=== PATIENT | female | born 1970 | race Caucasian/White ===

== ENCOUNTER 2016-05-25 14:38 | Emergency (ER) | payer OTHER ==
[2016-05-25 14:42] VITALS: BP 145/80; PULSE 80; TEMP 98.6; BMI 27.9
--- NOTE | 2016-05-25 16:53 | PDOC ---
History of Present Illness - General Chief Complaint: Head/Neck problem Stated Complaint: NUMBNESS/ LT SIDE OF FACE Time Seen by Provider: 05/25/16 16:28 History Source: Patient Exam Limitations: No Limitations - History of Present Illness Initial Comments: 05/25/16 16:52 CHIEF COMPLAINT: Facial numbness HISTORY OF PRESENT ILLNESS: This is a 45 year old female with a history of HTN, dyslipidemia, and hypothyroidism who presents complaining of left facial numbness and alternate left arm pain and numbness since Monday. She attributes these symptoms to stress that she has from taking care of her brother in who is recovering from his *third stroke (age 49) and from the recent of her best friend. She denies headache, neck pain, visual changes , difficulty walking, focal weakness, change in speech, or any other symptoms. Vital signs on arrival are unremarkable. PCP is Dr. Montiel. REVIEW OF SYSTEMS: GENERAL/CONSTITUTIONAL: No fever or chills. No weakness. No weight change. HEAD, EYES, EARS, NOSE AND THROAT: No change in vision. No ear pain or discharge. No sore throat. CARDIOVASCULAR: No chest pain or palpitations. RESPIRATORY: No cough, wheezing, or shortness of breath. GASTROINTESTINAL: No nausea, vomiting, diarrhea or constipation. GENITOURINARY: No dysuria, frequency, or change in urination. MUSCULOSKELETAL: No joint or muscle swelling or pain. No neck or back pain. SKIN: No rash or easy bruising. NEUROLOGIC: See HPI. PSYCHIATRIC: No depression or anxiety. ENDOCRINE: No increased thirst. No abnormal weight change. HEMATOLOGIC/LYMPHATIC: No anemia, easy bleeding, or history of blood clots. ALLERGIC/IMMUNOLOGIC: No hives or skin allergy. No latex allergy. PHYSICAL EXAM: GENERAL: The patient is awake, alert, and fully oriented, in no acute distress. ENT: Pupils equal, round and reactive to light, extraocular movements intact, sclera anicteric, conjunctiva clear. Neck supple. LUNGS: Clear to auscultation bilaterally. Normal excursion. No respiratory distress or use of accessory muscles. CV: RRR, S1/S2, no MRG. Cap refill < 2 sec. ABDOMEN: Soft, non-distended, non-tender. EXTREMITIES: Normal range of motion, no edema. NEUROLOGICAL: Normal speech, normal gait. CN II-XII grossly intact. PSYCH: Normal mood, normal affect. SKIN: Warm, dry, normal turgor, no rashes or lesions noted. NIH Stroke Scale - Last Known Well Date/Time & Onset Date Last Known Well: 05/21/16 - Initial Evaluation Level of consciousness: Alert Ask patient the month and their age: Answers both correctly Ask patient to open & close eyes; make fist and let go: Obeys both correctly Best gaze (horizontal eye movement): Normal Visual field testing: No visual field loss Facial paresis (Show teeth/raise eyebrows/close eyes tight): Normal symmetrical movement Motor Function: Left Arm: Normal Motor Function: Right Arm: Normal (extends arm 90 (or 45) degrees for 10 seconds without drift Motor Function: Left Leg: Normal (extends leg 30 degrees for 5 seconds without drift) Motor Function: Right Leg: Normal (extends leg 30 degrees for 5 seconds without drift) Limb Ataxia: No ataxia Sensory(Use pinprick test arms,legs,trunk,face/side to side): Normal Best language (Describe picture, name items, read sentences): No Aphasia Dysarthria (read several words): Normal articulation Extinction and Inattention: No abnormality - Total Score NIH Stroke Scale Score: 0 Past History - Past Medical History Allergies/Adverse Reactions: Allergies Allergy/AdvReac Type Severity Reaction Status Date / Time No Known Allergies Allergy Verified 05/25/16 14:42 Home Medications: Ambulatory Orders Levothyroxine [Synthroid -] 25 mcg PO DAILY 04/18/14 Amlodipine Besylate 10 mg PO DAILY 05/25/16 Simvastatin 40 mg PO DAILY 05/25/16 HTN: Yes Hypercholesterolemia: Yes Psychiatric Problems: No Suicide Attempt (Hx): No Thyroid Disease: Yes - Reproductive History Cervical CA: No Dysfunctional Uterine Bleeding: No Ectopic : No Endometrial CA: No Polycystic Ovaries: No Tubal Ligation: No - Immunization History Immunization Up to Date: Yes - Psycho/Social/Smoking Cessation Hx Anxiety: No Suicidal Ideation: No Smoking History: Never smoked Have you smoked in the past 12 months: No Hx Alcohol Use: No Drug/Substance Use Hx: No Substance Use Type: None *Physical Exam - Vital Signs Last Vital Signs Temp Pulse Resp BP Pulse Ox 98.6 F 80 20 145/80 100 05/25/16 14:39 05/25/16 14:39 05/25/16 14:39 05/25/16 14:39 05/25/16 14:39 Heart Score/ECG Review - ECG Intrepretation Comment:: 05/25/16 19:27 NSR at 69bpm, no ST or T wave changes ED Treatment Course - LABORATORY CBC & Chemistry Diagram: 05/25/16 17:20 05/25/16 17:20 Medical Decision Making - Medical Decision Making 05/25/16 17:18 A/P: 45 year old female with left facial numbness and left arm pain/numbness since Monday, both resolved prior to arrival. NIHSS=0. 1. EKG 2. Cardiac labs 3. Head CT 4. Re-assess 05/25/16 18:[address]: no acute intracranial process. Patient re-examined and still asymptomatic. *DC/Admit/Observation/Transfer Diagnosis at time of Disposition: Numbness of face - Discharge Dispostion Disposition: HOME Condition at time of disposition: Stable Admit: No - Referrals Referrals: Urvashi Montiel [Primary Care Provider] - Elliot Yanez MD [Staff Physician] - 3 days (If symptoms persist) - Patient Instructions Printed Discharge Instructions: DI for Numbness/tingling Additional Instructions: -You were seen today for facial and arm numbness. -CT scan, EKG, and lab work did not show any abnormalities. -If symptoms persist, please follow up with a neurologist (referral enclosed) -Return here for sudden/severe headache, change in speech, weakness of your arms or legs, difficulty walking, change in your vision, or any other concerning symptoms
--- NOTE | 2016-05-25 17:34 | PDOC ---
[id number]/80 100 05/25/16 14:39 05/25/16 14:39 05/25/16 14:39 05/25/16 14:39 05/25/16 14:39 - Physical Exam Comments: 05/25/16 17:34 The patient was examined by [QUANTITATIVE ANALYST Alexa] under my direct supervision. I personally evaluated the patient. I concur with the above findings and the plan of care. ED Treatment Course - LABORATORY CBC & Chemistry Diagram: 05/25/16 17:20 05/25/16 17:20 *DC/Admit/Observation/Transfer Diagnosis at time of Disposition: Facial numbness - Referrals Referrals: Elliot Yanez MD [Staff Physician] - 3 days (If symptoms persist) Urvashi Montiel [Primary Care Provider] - - Patient Instructions Printed Discharge Instructions: DI for Numbness/tingling Additional Instructions: -You were seen today for facial and arm numbness. -CT scan, EKG, and lab work did not show any abnormalities. -If symptoms persist, please follow up with a neurologist (referral enclosed) -Return here for sudden/severe headache, change in speech, weakness of your arms or legs, difficulty walking, change in your vision, or any other concerning symptoms
[2016-05-25 17:40] LABS: BASOPHIL 0.9 % (0-2.0); EOSINOPHIL 2.3 % (0-4.5); MCH 27.8 pg (25.7-33.7); MCHC 33.5 g/dl (32.0-36.0); MEAN CELL VOLUME 82.8 fl (80-96); MEAN PLT VOLUME 9.6 fl (7.5-11.1); NEUTROPHILS 56.3 % (42.8-82.8); PLATELET COUNT 316 K/MM3 (134-434); RDW 13.8 % (11.6-15.6); WHITE BLOOD COUNT 7.5 K/mm3 (4.0-10.0)
[2016-05-25 17:53] LABS: INR 0.99 (0.82-1.09); PROTHROMBIN TIME (PATIENT) 10.9 SEC (9.98-11.88)
[2016-05-25 19:30] LABS: ANION GAP 13 (8-16); CALCIUM 9.2 mg/dL (8.5-10.1); CO2 23 mmol/L (21-32); CREATININE 0.7 mg/dL (0.55-1.02); GLUCOSE,RANDOM 81 mg/dL (74-106); MAGNESIUM 2.1 mg/dL (1.8-2.4); SGOT/AST 15 U/L (15-37); SGPT/ALT 16 U/L (12-78)
[2016-05-25 19:32] LABS: ALK PHOS 102 U/L (45-117); BILIRUBIN,TOTAL 0.4 mg/dL (0.2-1.0); TOT PROT 7.9 g/dl (6.4-8.2)
[2016-05-25 19:35] LABS: TROPONIN I < 0.02 ng/ml (0.00-0.05)
--- NOTE | 2016-05-26 12:22 | EKG ---
Test Reason : Blood Pressure : / mmHG Vent. Rate : 069 BPM Atrial Rate : 069 BPM P-R Int : 138 ms QRS Dur : 086 ms QT Int : 418 ms P-R-T Axes : 025 061 029 degrees QTc Int : 447 ms NORMAL SINUS RHYTHM NORMAL ECG NO PREVIOUS ECGS AVAILABLE Confirmed by TRA JACOBSON MD ([id number]) on 05/26/2016 12:21:46 PM Referred By: Confirmed By:TRA JACOBSON MD
--- NOTE | 2016-05-27 11:52 | EKG ---
Test Reason : Blood Pressure : / mmHG Vent. Rate : 055 BPM Atrial Rate : 055 BPM P-R Int : 158 ms QRS Dur : 080 ms QT Int : 444 ms P-R-T Axes : 025 058 016 degrees QTc Int : 424 ms SINUS BRADYCARDIA NONSPECIFIC ST ABNORMALITY Confirmed by FRANCOISE MUNGUIA MD ([id number]) on 05/27/2016 11:51:59 AM Referred By: Confirmed By:FRANCOISE MUNGUIA MD
== END 2016-05-25 20:10 | disposition home or self-care (01) ==
LOC: JER 14:38
DX: R20.0 Anesthesia of skin (principal); I10 Essential (primary) hypertension; E78.5 Hyperlipidemia, unspecified; E78.00 Pure hypercholesterolemia, unspecified; E03.9 Hypothyroidism, unspecified
CPT/HCPCS: 36415; 70450-TC; 80053; 82550; 83735; 84484; 84703; 85025; 85610; 93005; 93010; 99283-25

== ENCOUNTER 2018-06-01 06:06 | Inpatient (IN) | payer OTHER ==
[2018-05-31 13:32] VITALS: BMI 26.2
--- NOTE | 2018-06-01 07:29 | HP ---
History & Physical Update - History History: No Change - Physical Physical: No Change - Assessment Assessment: No Change - Plan Plan: No Change (no change since visit on 05/17/18)
[2018-06-01] MEDS ORDERED: MIDAZOLAM HCL 2 MG/2 ML SINGLE DOSE VIAL ONE ×2 (07:41)
[2018-06-01] MEDS ORDERED: fentaNYL CITRATE 250 MCG/5 ML VIAL ONE (07:44)
[2018-06-01] MEDS ORDERED: PROPOFOL 20 ML ONE ×2 (07:45)
[2018-06-01] MEDS ORDERED: ROCURONIUM BROMIDE 50 MG/5 ML VIAL ONE (07:45)
[2018-06-01] MEDS ORDERED: ceFAZolin SODIUM 1 GM VIAL IVPB ONE ×3 (07:58→17:00)
[2018-06-01] MEDS ORDERED: CEFAZOLIN 2 GM/D5W 2 GM/50 ML ML IVPB ONE (09:00)
[2018-06-01] MEDS ORDERED: ceFAZolin SODIUM 1 GM VIAL ONE (09:05)
[2018-06-01] MEDS ORDERED: DEXAMETHASONE SOD PHOSPHATE 4 MG/1 ML VIAL ONE (09:05)
[2018-06-01] MEDS ORDERED: GLYCOPYRROLATE 0.2 MG/1 ML VIAL ONE (09:05)
[2018-06-01] MEDS ORDERED: KETOROLAC TROMETHAMINE 30 MG/1 ML VIAL ONE (09:05)
[2018-06-01] MEDS ORDERED: LIDOCAINE HCL/PF 2% SDV 5ML VIAL ONE (09:05)
[2018-06-01] MEDS ORDERED: NEOSTIGMINE METHYLSULFATE 0.5 MG/ML - 10 ML MDV ONE (09:07)
[2018-06-01] MEDS ORDERED: oxyCODONE HCL 5 MG TABLET PO PRN ×2 (09:11→10:01)
--- NOTE | 2018-06-01 09:15 | OP ---
Operative Note - Note: Operative Date: 06/01/18 Pre-Operative Diagnosis: Menorrhagia / Fibroid uterus Operation: Subtotal hysterectomy / Bilateral salpingegtomy / Left oophorectomy Surgeon: Leandra Lagos Power Sweeper Operator: Sheron Soto Anesthesia: General Estimated Blood Loss (mls): 100
[2018-06-01] MEDS ORDERED: HYDROmorphone HCl 2 MG/ML VIAL ONE (09:21)
[2018-06-01] MEDS ORDERED: BENZOIN/ALOE VERA/STORAX/TOLU 58 ML BOTTLE TP ONE (09:21)
[2018-06-01] MEDS ORDERED: CEFAZOLIN 1 GM/D5W 1 GM/50 ML BAG IVPB SCH (10:00)
[2018-06-01] MEDS ORDERED: ACETAMINOPHEN 1000 MG/100 ML VIAL (NON FORMULARY) IVPB ONE ×2 (10:01→10:22)
--- NOTE | 2018-06-01 10:13 | SURG ---
Surgery Full Stack Developer Note Full Stack Developer: Jessie Soto PA-C Date of Service: 06/01/18 Diagnosis: Menorrhagia / Fibroid uterus Procedure: Operation: Subtotal hysterectomy / Bilateral salpingegtomy / Left oophorectomy I was present for the entirety of the operative procedure. For further detail, please refer to operative report. Visit type - Case Type Case Type: Scheduled - Emergency Emergency Visit: No - New patient This patient is new to me today: Yes Date on this admission: 06/01/18
[2018-06-01] MEDS ORDERED: ALBUTEROL SO4 0.083% IH SOL 2.5 MG/3 ML VIAL.NEB. NEB ONE ×2 (10:14→10:15)
[2018-06-01] MEDS ORDERED: LACTATED RINGERS SOLUTION 1,000 ML/1,000 ML INFUS.BAG IV SCH (10:15)
[2018-06-01] MEDS ORDERED: HYDROmorphone *PCA* 10MG/50ML DISP.SYRIN PCA ONE ×2 (10:15→10:24)
[2018-06-01] MEDS ORDERED: ONDANSETRON 4 MG/2 ML VIAL IVPUSH PRN (11:02)
[2018-06-01] MEDS ORDERED: FUROSEMIDE 40 MG/4 ML INJECTABLE VIAL IVPUSH ONE ×3 (11:06→12:15)
[2018-06-01] MEDS ORDERED: LACTATED RINGERS SOLUTION 1,000 ML IV SCH (11:15)
[2018-06-01] MEDS ORDERED: HYDROmorphone *PCA* 10MG/50ML DISP.SYRIN PCA SCH (11:15)
[2018-06-01] MEDS: ENOXAPARIN NA (PORCINE) 30 MG/0.3 ML DISP.SYRIN SQ SCH (22:17)
[2018-06-02] MEDS ORDERED: CEFAZOLIN 1 GM/D5W 1 GM/50 ML BAG IVPB SCH (01:00)
[2018-06-02] MEDS: ENOXAPARIN NA (PORCINE) 30 MG/0.3 ML DISP.SYRIN SQ SCH ×2 (10:02→22:38)
--- NOTE | 2018-06-02 11:20 | PN ---
Progress Note (short form) - Note Progress Note: Anesthesiology Post-op 47 y.o. woman POD#1 s/p hysterectomy under GA. She was admitted post-op to telemetry for SpO2 monitoring due to prolonged sleepiness post-op. She is awake and alert this morning, sitting-up. She only c/ o some mild dizziness. No ON or anesthesia-related issues. She states that she isn't using the MANAGER CORE as much now. VSS. Stable post-operative course. Will d/c MANAGER CORE and transition pt to PO pain meds. D/w pt who is amenable to this plan.
[2018-06-02] MEDS: DEXTROSE 5%-LACTATED RINGERS 1,000 ML IV SCH (12:23)
--- NOTE | 2018-06-02 12:35 | PN ---
Progress Note (short form) - Note Progress Note: 47 yo Para 3, with menorrhagia associated with Leiomyoma of the uterus, is status post abdominal hysterectomy. She had 2 prior C-Sections and abdominoplasty. She's seen and evaluated, doing well. She's out of bed to chair; only mild incision pain. PE : Chest : CTA, no rales Abd : soft, dressing dry and intact EXT : No calf tenderness, FROM A/P : Status post hysterectomy Stable Ambulation Analgesia as needed D/C INFORMATICS PHARMACIST D/C Jaquez catheter Regular diet D/C home in am
[2018-06-02 13:57] LABS: BASO % 0.3 % (0-2.0); EOS % 0.2 % (0-4.5); HEMATOCRIT 30.5 % (32.4-45.2); HEMOGLOBIN 9.2 GM/dL (10.7-15.3); MCH 21.4 pg (25.7-33.7); MCHC 30.1 g/dl (32.0-36.0); MEAN CELL VOLUME 71.3 fl (80-96); MEAN PLT VOLUME 8.7 fl (7.5-11.1); MONO % 12.5 % (3.8-10.2); PLATELET COUNT 383 K/MM3 (134-434); RBC 4.28 M/mm3 (3.60-5.2); WHITE BLOOD COUNT 13.1 K/mm3 (4.0-10.0)
[2018-06-02 15:33] LABS: ANISOCYTOSIS 1+
[2018-06-02 15:34] LABS: OVALOCYTE 1+
[2018-06-02] MEDS: ACETAMINOPHEN 325 MG TABLET (FP) PO PRN (16:44)
[2018-06-03] MEDS: ACETAMINOPHEN 325 MG TABLET (FP) PO PRN (06:19)
[2018-06-03 08:43] VITALS: BP 122/70; PULSE 88; TEMP 98.7
[2018-06-03] MEDS: ENOXAPARIN NA (PORCINE) 30 MG/0.3 ML DISP.SYRIN SQ SCH (09:32)
[2018-06-03] MEDS: DEXTROSE 5%-LACTATED RINGERS 1,000 ML IV SCH (09:57)
--- NOTE | 2018-06-03 15:06 | DS ---
"Physical Examination Vital Signs: Vital Signs Temperature 98.7 F 06/03/18 08:41 Pulse Rate 88 06/03/18 08:41 Respiratory Rate 18 06/03/18 08:41 Blood Pressure 122/70 06/03/18 08:41 O2 Sat by Pulse Oximetry (%) 97 06/03/18 09:00 Constitutional: Yes: Well Nourished Eyes: Yes: Conjunctiva Clear HENT: Yes: Atraumatic Neck: Yes: Supple Cardiovascular: Yes: Regular Rate and Rhythm Respiratory: Yes: Regular Gastrointestinal: Yes: Normal Bowel Sounds Musculoskeletal: Yes: WNL Extremities: Yes: WNL Wound/Incision: Yes: Well Approximated Neurological: Yes: Alert, Oriented Psychiatric: Yes: Alert, Oriented Labs: CBC, BMP 06/02/18 13:35 Discharge Summary Reason For Visit: MENORRHAGIA, FIBROID UTERUS Procedures: Principal: Subtotal hysterectomy / Bilateral salpingectomy / Left Oophorectomy Hospital Course: Patient was admitted to telemetry after surgery. She was then transferred to regular floor before discharge. No blood transfusion required. Condition: Stable - Instructions Diet, Activity, Other Instructions: Dr Lagos Apprenticeship Training Representative discharge instructions Physical activity Resume your normal everyday activity as tolerated no heavy lifting or exercise until seen by your surgeon. You may walk unlimited rober of and climb stairs. You may resume driving the car when you feel safe and comfortable behind the wheel. No sexual activity as instructed by Dr. Lagos. Wound care Keep your incision clean and dry for72 hours. After that time discard the outer bandage. If they are tapes on the skin under the out of bandage leave them in place. They will peel off in the next 7 to 10 days. Do Not Peel them off. You may shower 3 days after surgery but do not submerge the incision. If there are tapes present on the skin, you may shower over them. Do not apply lotion or ointments to incision. Diet There are no dietary restrictions. Eat healthy, high-fiber foods. Drink 6 to 8 glasses of liquid each day. This will assist in keeping your bowels are regular. Pain management You may take Tylenol or acetaminophen or Ibuprofen (for example, Motrin, Advil etc.) from my pain prescription medication is ordered should be taken as prescribed for moderate to severe pain. Call Dr. Lagos for any of the following: Severe pain not relieved by medication Fever of 101 or higher Excessive bleeding or drainage on dressing Inability to urinate If you experience any chest pain or shortness of breath please seek emergency treatment immediately. Call the office at [phone] for an appointment in seven days. [place] Prescription Monitoring Program report was requested by: Jessie Kearney | Reference #: [id number] Disposition: HOME - Home Medications Comprehensive Discharge Medication List: Ambulatory Orders Amlodipine Besylate 10 mg PO DAILY 05/25/16 Simvastatin 40 mg PO DAILY 05/25/16 Levothyroxine [Synthroid -] 125 mcg PO DAILY 05/31/18 Oxycodone HCl/Acetaminophen [Percocet 5-325 mg Tablet] 1 - 2 tab PO Q4H #20 tablet MDD 6 06/01/18 Oxycodone HCl/Acetaminophen [Percocet 5-325 mg Tablet] 1 tab PO Q4H #20 tablet MDD 20 06/02/18"
--- NOTE | 2018-06-03 15:57 | OP ---
DATE OF OPERATION: 06/01/2018 PREOPERATIVE DIAGNOSIS: Menorrhagia and leiomyoma of the uterus. POSTOPERATIVE DIAGNOSIS: Menorrhagia and leiomyoma of the uterus. PROCEDURE: Subtotal hysterectomy, bilateral salpingectomy and left oophorectomy. SURGEON: Leandra Lagos MD REGISTERED NURSE CARDIAC: Jessie LUEVANO ANESTHESIA: General. COMPLICATIONS: None. ESTIMATED BLOOD LOSS: 100 mL PROCEDURE: Patient was taken to the operating room where general anesthesia was administered. Patient was then prepped and draped in proper sterile fashion. A Pfannenstiel skin incision was made approximately 2 cm above the symphysis pubis and extended sharply to the rectus fascia. The fascia was then incised bilaterally and the muscle of the anterior abdominal wall was in the midline by sharp and blunt dissection. The peritoneum was grasped between 2 pickups, elevated and entered sharply using Metzenbaum scissors. The pelvis was examined and there was an enlarged uterus noted. The bowel was packed with moist laparotomy sponges. Two Pean clamps were placed on the cornua and used for retraction. The round ligaments on both sides were clamped using the LigaSure device, burned and cut. The anterior leaf of the broad ligament was incised along the bladder reflection to the midline from both sides. The bladder was gently dissected off the lower uterine segment and the cervix with a sponge stick. On the left side the infundibulopelvic ligament was then clamped with the LigaSure device, burnt and cut. Hemostasis was visualized. Then on the right side the utero-ovarian ligament was then clamped with the LigaSure device and burnt and cut. Hemostasis was assured. Then the uterine arteries were skeletonized bilaterally, clamped with the LigaSure device and burnt. Hemostasis was assured. The uterosacral ligaments were clamped on both sides, burnt and cut with the LigaSure device, and the uterus was the amputated off the cervix and the cervical stump was closed using celaeo-jf-kayia stitches of 0 Vicryl. The remainder of the stump was closed with a series of interrupted 1-0 Vicryl suture. Hemostasis was assured and the pelvis was irrigated copiously with warm normal saline. All laparotomy sponges and instruments were removed from the abdomen. The fascia was closed using 0 Vicryl and the skin was closed in a subcuticular fashion using 3-0 Vicryl. Patient tolerated procedure well. Patient was then taken to PACU in stable condition. PATHOLOGY: Uterus, tubes and left ovary. Danitza [id number]
--- NOTE | 2018-06-04 16:21 | PATH ---
Surgical Pathology Report Patient Name: LASHON GOMEZ [facility]. Rec. #: [id number] /Age/Gender: 1970 (Age: 47) / F Account: [id number] Location: 4 TELEMETRY U Taken: 06/01/2018 Received: 06/01/2018 Reported: 06/04/2018 Physicians: Leandra Lagos M.D. Specimen(s) Received A: RIGHT FALLOPIAN TUBE B: UTERUS, LEFT FALLOPIAN TUBE AND OVARY Clinical History Menorrhagia, fibroid uterus Final Diagnosis A. RIGHT FALLOPIAN TUBE, SALPINGECTOMY: PORTION OF FALLOPIAN TUBE WITH PARATUBAL CYSTS. B. UTERUS, LEFT FALLOPIAN TUBE AND OVARY, SUPRACERVICAL HYSTERECTOMY AND LEFT OOPHOROSALPINGECTOMY: LEIOMYOMATA WITH FOCAL DEGENERATIVE CHANGE (HYALINIZATION AND CALCIFICATION). ADENOMYOSIS. PROLIFERATIVE ENDOMETRIUM. LEFT FALLOPIAN TUBE WITH PARATUBAL CYST. LEFT OVARY WITH CYSTIC FOLLICLES. Electronically Signed Alex Cadet M.D. Gross Description A. Received in formalin labeled "right fallopian tube," is a 2.5 cm in length fimbriated fallopian tube. The outer surface is montanez-pink and smooth with a 1.6 cm greatest dimension paratubal cyst attached. Sectioning reveals an unremarkable lumen. Assembler Lay Ups sections are submitted in 2 cassettes as follows: 1-fimbria; 2-cross section of fallopian tube and paratubal cyst. B. Received in formalin labeled "uterus, left fallopian tube and ovary," is a 147 g supracervically amputated uterus with an attached left fallopian tube and left ovary. The specimen measures 8.3 cm from superior to inferior, 6.5 cm from left to right and 5.5 cm from anterior to posterior. The serosa is pink-montanez and smooth. The endometrial cavity measures 5.5 cm in length and 2.1 cm from cornu to cornu. The endometrium is red and averages 0.1 cm in thickness. The myometrium displays abundant intramural nodules, measuring up to 1.5 cm in greatest dimension. The cut surface of the nodules is montanez and rubbery with whorled architecture. The remaining myometrium is montanez-pink and measures up to 2.6 cm in thickness the last fimbriated fallopian tube measures 3.8 cm in length. The outer surface is villanueva purple with a 1.2 cm in greatest dimension attached paratubal cyst. Sectioning reveals an unremarkable lumen. The left ovary measures 2.8 x 2.0 x 1.3 cm. The outer surface is montanez-pink and smooth. Sectioning reveals multiple small ovarian serous cysts, measuring up to 0.8 cm in greatest dimension. The remaining ovarian parenchyma is montanez-pink and unremarkable. Assembler Lay Ups sections are submitted in 12 cassettes as follows: 1-cervical stump margin of resection; 3-6-rtdlkfuo endomyometrium; 2-2-ehznhpyto endomyometrium; 3-0-dgravdsewm nodules; 9-left fallopian tube fimbria; 10-cross sections of left fallopian tube and paratubal cyst; 11-left ovarian cysts; 12-additional left ovary. 06/01/2018 [facility]
== END 2018-06-03 11:35 | disposition home or self-care (01) | DRG 519 ==
LOC: JSAMEDAYSX 06:06 → EDSTATUS 07:30 → J4W 17:05
PROVIDERS: ADMIT Obstetrics & Gynecology; ATTEND Obstetrics & Gynecology
PROC: 0UB70ZZ Excision of Bilateral Fallopian Tubes, Open Approach (ICD-10-PCS; 2018-06-01)
PROC: 0UB10ZZ Excision of Left Ovary, Open Approach (ICD-10-PCS; 2018-06-01)
PROC: 0UT90ZL Resection of Uterus, Supracervical, Open Approach (ICD-10-PCS; principal; 2018-06-01 07:30)
DX: D25.9 Leiomyoma of uterus, unspecified (principal); N92.0 Excessive and frequent menstruation with regular cycle
CPT/HCPCS: 36415; 84702; 85025; 86850; 86900; 86901; 88302-TC; 88307-TC; 94010; 94760; J0131

== ENCOUNTER 2018-09-06 14:11 | Inpatient (IN) | payer MEDICARE, OTHER ==
[2018-09-06 14:18] VITALS: BMI 27.4
--- NOTE | 2018-09-06 14:19 | PDOC ---
Rapid Medical Evaluation Time Seen by Provider: 09/06/18 14:14 Medical Evaluation: Allergies Allergy/AdvReac Type Severity Reaction Status Date / Time No Known Allergies Allergy Verified 06/01/18 06:55 09/06/18 14:14 I have performed a brief in-person evaluation of this patient. The patient presents with a chief complaint of: left sided chest pain with GARY and left facial numbness Pertinent physical exam findings: diaphoresis, BP-84/66, Lungs CTAB I have ordered the following: cardiac w/u The patient will proceed to the ED for further evaluation. Discharge Disposition - Diagnosis Chest pain - Referrals - Patient Instructions - Post Discharge Activity
[2018-09-06] MEDS ORDERED: ASPIRIN 81 MG CHEWABLE TABLETS PO ONE (14:38)
[2018-09-06] MEDS ORDERED: ASPIRIN 81 MG CHEWABLE TABLETS ONE (14:46)
[2018-09-06 15:05] LABS: BASO % 0.7 % (0-2.0); EOS % 1.8 % (0-4.5); HEMATOCRIT 31.1 % (32.4-45.2); HEMOGLOBIN 9.7 GM/dL (10.7-15.3); MCH 21.5 pg (25.7-33.7); MCHC 31.2 g/dl (32.0-36.0); MEAN CELL VOLUME 69.1 fl (80-96); MEAN PLT VOLUME 8.8 fl (7.5-11.1); MONO % 9.4 % (3.8-10.2); NEUT % 59.1 % (42.8-82.8); PLATELET COUNT 367 K/MM3 (134-434); RDW 18.9 % (11.6-15.6); WHITE BLOOD COUNT 7.6 K/mm3 (4.0-10.0)
[2018-09-06 15:28] LABS: ALBUMIN 3.9 g/dl (3.4-5.0); ALK PHOS 91 U/L (45-117); ANION GAP 6 MMOL/L (8-16); BILIRUBIN,TOTAL 0.4 mg/dL (0.2-1); BLOOD UREA NITROGEN 8.8 mg/dL (7-18); CHLORIDE 107 mmol/L (98-107); CO2 26 mmol/L (21-32); CREATININE 0.7 mg/dL (0.55-1.3); GLUCOSE,RANDOM 80 mg/dL (74-106); MAGNESIUM 2.4 mg/dL (1.8-2.4); POTASSIUM 3.9 mmol/L (3.5-5.1); SGOT/AST 16 U/L (15-37); SGPT/ALT 23 U/L (13-61); SODIUM 139 mmol/L (136-145); TOT PROT 7.5 g/dl (6.4-8.2)
--- NOTE | 2018-09-06 15:43 | PDOC ---
Documentation entered by Bashir Harding SCRIBE, acting as scribe for Harinder Ng MD. Harinder Ng MD: This documentation has been prepared by the Mehdi cm Daniel, SCRIBE, under my direction and personally reviewed by me in its entirety. I confirm that the documentation accurately reflects all work, treatment, procedures, and medical decision making performed by me. Attending Attestation - Resident Resident Name: JakeAlyssa - ED Attending Attestation I have performed the following: I have examined & evaluated the patient, The case was reviewed & discussed with the resident, I agree w/resident's findings & plan, Exceptions are as noted - HPI HPI: 09/06/18 15:15 The patient is a 48 year old female with a past medical history of HTN, HLD, and carotid stenosis here today for evaluation of chest pain. The patient reports that she woke up today with left sided substernal chest pain that is intermittent and comes in 10-15 minute episodes. She notes associated exertional shortness of breath which has been getting worse, as well as a feeling of heaviness on her left side. Patient denies headache, lightheadedness. Denies fever, chills. Denies orthopnea. Denies nausea, vomiting, diarrhea, abdominal pain. Denies lower extremity edema. Allergies: Social history: Denies tobacco, illicit drug, and alcohol use Family history: [place] (brother, father, mother) PCP: Elian Ward - Physicial Exam PE: 09/06/18 15:42 "GENERAL: Awake, alert, and fully oriented, in no acute distress. HEAD: No signs of trauma EYES: PERRLA, EOMI, sclera anicteric, conjunctiva clear ENT: Auricles normal inspection, hearing grossly normal, nares patent, oropharynx clear without exudates. Moist mucosa NECK: Nontender, no stepoffs, Normal ROM, supple, no lymphadenopathy, JVD, or masses LUNGS: Breath sounds equal, clear to auscultation bilaterally. No wheezes, and no crackles HEART: Regular rate and rhythm, normal S1 and S2, no murmurs, rubs or gallops ABDOMEN: Soft, nontender, normoactive bowel sounds. No guarding, no rebound. No masses EXTREMITIES: Normal range of motion, no edema. No clubbing or cyanosis. No cords, erythema, or tenderness NEUROLOGICAL: Cranial nerves II through XII intact. 5/5 strength and sensation in all extremities, Normal speech, normal gait, normal cerebellar function SKIN: Warm, Dry, normal turgor, no rashes or lesions noted. - Critical Care Time Total Critical Care Time: 60 Critical Care Statement: The care of this patient involved high complexity decision making to prevent further life threatening deterioration of the patient 's condition and/or to evaluate & treat vital organ system(s) failure or risk of failure. - Medical Decision Making 09/06/18 15:42 48 F with chest pain and SOB. Pt with significant family history (brother, father, mother all had MIs). EKG with no ischemic changes but will need to r/o ACS. - Labs, trop - CXR - Admit tele
--- NOTE | 2018-09-06 15:48 | PDOC ---
History of Present Illness - General Chief Complaint: Chest Pain Stated Complaint: LT. SIDE NUMBNESS/ SOB Time Seen by Provider: 09/06/18 14:14 History Source: Patient Exam Limitations: No Limitations - History of Present Illness Initial Comments: Pt is a 48 yo F, with PMH of HTN ,HLD, carotid stenosis, hypothyroidism, and fibroids, who is presenting with complaints of intermittent chest pain since this morning. The pain started this AM after she woke up from sleep. Pt states her pain is pressure-like, lasts about 10-15 minutes at a time, and radiates towards her left hand and left jaw. Pt states she has also been more SOB with exertion over the past few weeks. Pt denies any recent fevers/chills, headache, vision changes, syncope, cough, orthopnea, palpitations, SOB, nausea/vomiting, abdominal pain, urinary symptoms, diarrhea/constipation, or leg swelling. Allergies: NKDA PCP: Dr. Elian Ward Social: Pt denies any cigarette, alcohol, or drug use. Pt denies any recent travel or sick contacts. Surgical: fibroid and ovarian cyst removal. Family: MA/CVA in brother (50s), MA in mother and father (70s). 09/06/18 15:51 Past History - Travel Traveled outside of the country in the last 30 days: No Close contact w/someone who was outside of country & ill: No - Past Medical History Allergies/Adverse Reactions: Allergies Allergy/AdvReac Type Severity Reaction Status Date / Time No Known Allergies Allergy Verified 09/06/18 14:18 Home Medications: Ambulatory Orders Amlodipine Besylate 10 mg PO DAILY 05/25/16 Simvastatin 40 mg PO DAILY 05/25/16 Levothyroxine [Synthroid -] 175 mcg PO DAILY 05/31/18 Aspirin [ASA -] 81 mg PO DAILY 09/06/18 Anemia: No Asthma: Yes ("allergic") Cancer: No Cardiac Disorders: No CVA: No COPD: No CHF: No Dementia: No Diabetes: No GI Disorders: No Disorders: No HTN: Yes Hypercholesterolemia: Yes Liver Disease: No Psychiatric Problems: No Seizures: No Thyroid Disease: Yes - Reproductive History Cervical CA: No Dysfunctional Uterine Bleeding: No Ectopic : No Endometrial CA: No Polycystic Ovaries: No Tubal Ligation: No - Immunization History Immunization Up to Date: Yes - Suicide/Smoking/Psychosocial Hx Smoking History: Never smoked Have you smoked in the past 12 months: No Information on smoking cessation initiated: No Hx Alcohol Use: No Drug/Substance Use Hx: No Substance Use Type: None Hx Substance Use Treatment: No Review of Systems - Review of Systems Able to Perform ROS?: Yes Is the patient limited [place] proficient: No Constitutional: Yes: Weight Stable. No: Chills, Diaphoresis, Fever, Loss of Appetite, Malaise, Weakness HEENTM: No: Blurred Vision, Double Vision, Nose Pain, Nose Congestion, Throat Pain, Throat Swelling, Mouth Swelling Respiratory: Yes: Shortness of Breath, SOB with Exertion. No: Cough, Orthopnea , SOB at Rest, Wheezing, Productive cough, Hemoptysis Cardiac (ROS): Yes: See HPI, Chest Pain. No: Edema, Irregular Heart Rate, Lightheadedness, Palpitations, Syncope, Chest Tightness ABD/GI: No: Constipated, Diarrhea, Nausea, Poor Appetite, Poor Fluid Intake, Vomiting, Abdominal cramping : No: Burning, Dysuria, Frequency, Flank Pain, Hematuria, Pain, Urgency Musculoskeletal: No: Back Pain, Joint Pain, Muscle Pain, Muscle Weakness Integumentary: No: Rash Neurological: Yes: See HPI, Paresthesia. No: Headache, Numbness, Weakness, Unsteady Gait, Dizziness Psychiatric: No: Sleep Pattern Change, Change in Appetite Endocrine: No: Increased Urine, Change in Weight Hematologic/Lymphatic: Yes: Anemia. No: Blood Clots, Easy Bleeding, Easy Bruising All Other Systems: Reviewed and Negative *Physical Exam - Vital Signs Last Vital Signs Temp Pulse Resp BP Pulse Ox 98.6 F 79 18 127/73 100 09/06/18 14:15 09/06/18 14:49 09/06/18 14:49 09/06/18 14:49 09/06/18 14:49 - Physical Exam Comments: Vitals stable (BP 150/90s on exam), pt afebrile. Pt in NAD, no complaints of pain, normal body habitus. Pt alert and oriented x3. storage battery tester generally intact, muscular strength and sensation intact. No midline spinal tenderness, step-offs, or crepitus. Head normocephalic, atraumatic. Eyes PERRLA, EOMI. Oropharynx without erythema or exudates, no LAD b/l. No nasal congestion, hearing intact. Clear heart sounds, S1/S2, no JVD, b/l pedal edema, or heart murmur. Clear lung sounds, no respiratory distress, wheezes, crackles, or accessory muscle use. No abdominal or CVA tenderness to palpation, no rebound, no guarding. Abdomen soft, non-distended, and with normoactive bowel sounds. Skin without jaundice or rash. 09/06/18 15:49 Heart Score/ECG Review - History History: Moderately suspicious - Electrocardiogram EKG: Normal - Age Age: 45-65 - Risk Factors Risk Factors Heart Score: Yes Hx Hypercholesterolemia, Yes Hx Hypertension, Yes Positive family hx of cardiac disease Based on the list above the patient has:: >/=3 risk factors or Hx atherosclerotic disease - Troponin Troponin: </= normal limit - Score Heart Score - Total: 4 ED Treatment Course - LABORATORY CBC & Chemistry Diagram: 09/06/18 14:30 09/06/18 14:30 - ADDITIONAL ORDERS Additional order review: Laboratory Results 09/06/18 14:30 Sodium 139 Potassium 3.9 Chloride 107 Carbon Dioxide 26 Anion Gap 6 L BUN 8.8 Creatinine 0.7 Est GFR (CKD-EPI)AfAm 117.09 Est GFR (CKD-EPI)NonAf 101.02 Random Glucose 80 Calcium 9.0 Magnesium 2.4 Total Bilirubin 0.4 AST 16 ALT 23 Alkaline Phosphatase 91 Creatine Kinase 92 Troponin I < 0.02 Total Protein 7.5 Albumin 3.9 09/06/18 14:30 RBC 4.50 MCV 69.1 L MCHC 31.2 L RDW 18.9 H MPV 8.8 Neutrophils % 59.1 Lymphocytes % 29.0 D Monocytes % 9.4 Eosinophils % 1.8 D Basophils % 0.7 - Medications Given in the ED: ED Medications Discontinued Medications Generic Name Dose Route Start Last Admin Trade Name Freq PRN Reason Stop Dose Admin Aspirin 243 mg 09/06/18 14:38 09/06/18 14:48 Asa - PO 09/06/18 14:39 243 mg ONCE ONE Administration Medical Decision Making - Medical Decision Making Pt was seen at bedside, also will be seen by attending Dr. Ng. Pt presenting with complaints of intermittent chest pain since this morning. The pain started this AM after she woke up from sleep. Pt states her pain is pressure-like, lasts about 10-15 minutes at a time, and radiates towards her left hand and left jaw. Pt states she has also been more SOB with exertion over the past few weeks. Pt denies any recent fevers/chills, headache, vision changes, syncope, cough, orthopnea, palpitations, SOB, nausea/vomiting, abdominal pain, urinary symptoms, diarrhea/constipation, or leg swelling. Considering ACS vs angina vs pulmonary (pneumonia, bronchitis, effusion) vs MSK. Pt vitals stable, less concern for dissection and pt not having active pain at this time. Pt has strong family history of MA/CVA and she has known HLD and Ordered work-up including CBC, CMP, cardiac profile, ECG, chest x-ray. Pt denying any pain control at this point. Will continue to reassess pt and monitor for symptomatic improvement. ECG: NSR, intervals WNL (HR 87, AR 156, QRS 86, QTc 416). No TWIs or significant ST segment changes. No prior ECG for comparison. 09/06/18 15:49 Labs WNL, trop <.02 Pending chest x-ray Pt to be admitted tele/obs for chest pain, ACS r/o 09/06/18 16:46 Chest x-ray showed vascular congestion compared to prior. Providing 20 mg IV lasix. Pt admitted to hospitalist team (Dr. Darling) to tele obs. Pt stable and resting comfortably. No active chest pain while in ED. 09/06/18 17:39 *DC/Admit/Observation/Transfer Diagnosis at time of Disposition: Chest pain Qualifiers: Chest pain type: unspecified Qualified Code(s): R07.9 - Chest pain, unspecified - Discharge Dispostion Condition at time of disposition: Stable Decision to Admit order: Yes - Referrals Referrals: Elian Ward PA [Primary Care Provider] - - Patient Instructions - Post Discharge Activity
[2018-09-06 16:52] LABS: INR 1.06 (0.83-1.09); PROTHROMBIN TIME (PATIENT) 12.5 SEC (9.7-13.0)
--- NOTE | 2018-09-06 17:01 | EKG ---
Test Reason : Blood Pressure : / mmHG Vent. Rate : 087 BPM Atrial Rate : 087 BPM P-R Int : 156 ms QRS Dur : 086 ms QT Int : 346 ms P-R-T Axes : 066 066 049 degrees QTc Int : 416 ms NORMAL SINUS RHYTHM WITH SINUS ARRHYTHMIA NORMAL ECG WHEN COMPARED WITH ECG OF 25-MAY-2016 19:24, VENT. RATE HAS INCREASED BY 32 BPM T WAVE INVERSION NO LONGER EVIDENT IN INFERIOR LEADS Confirmed by TRA JACOBSON MD ([id number]) on 09/06/2018 5:00:59 PM Referred By: Confirmed By:TRA JACOBSON MD
[2018-09-06] MEDS ORDERED: FUROSEMIDE 40 MG/4 ML INJECTABLE VIAL IVPUSH ONE (17:05)
[2018-09-06 17:34] LABS: ANISOCYTOSIS 1+
[2018-09-06] MEDS ORDERED: FUROSEMIDE 40 MG/4 ML INJECTABLE VIAL ONE (17:52)
[2018-09-06 18:11] LABS: N-TERMINAL BNP 43.5 pg/ml (5-125)
--- NOTE | 2018-09-06 18:27 | HP ---
CHIEF COMPLAINT:chest pain PCP:Dr. Ward HISTORY OF PRESENT ILLNESS: Patient is a 48 year old female with past medical history of HTN, HLD and hypothyroidism, presented to the ED due multiple intermittent episodes of left sided chest pain radiating down to the left arm and jaw that started this morning. Patient reported she has been experiencing exertional SOB that started 2 weeks ago. This morning, upon waking up, patient experienced intermittent pressure like midsternal chest pain, 8/10, radiating to the left arm and jaw. Each episode lasts a few seconds and she would experience it every 10-15 minutes. No aggravating or alleviating factors. Patient has had similar episodes in the past, but has not followed up with a cardiology, no stress test or echo done. Patient denies any fever, chills, headache, dizziness, palpitations, abdominal pain, diarrhea, urinary symptoms. ER course was notable for: (1)Trop 0.02 x1 (2)EKG: NSR, no ST-T wave ischemic changes, QTc 454 (3) Recent Travel:denies PAST MEDICAL HISTORY: HTN HLD hypothyroidism fibroids s/p hysterectomy PAST SURGICAL HISTORY: subtotal hysterectomy with bilateral salpingectomy and left oophorectomy (2018) Social History: Smoking:denies Alcohol:denies Drugs: denies Family History: Brother - of [place] at 40s Mother/Father - [place] Allergies No Known Allergies Allergy (Verified 09/06/18 14:18) HOME MEDICATIONS: Home Medications Medication Instructions Recorded Amlodipine Besylate 10 mg PO DAILY 05/25/16 Simvastatin 40 mg PO DAILY 05/25/16 Levothyroxine [Synthroid -] 175 mcg PO DAILY 05/31/18 Aspirin [ASA -] 81 mg PO DAILY 09/06/18 REVIEW OF SYSTEMS CONSTITUTIONAL: Absent: fever, chills, diaphoresis, generalized weakness, malaise, loss of appetite, weight change HEENT: Absent: rhinorrhea, nasal congestion, throat pain, throat swelling, difficulty swallowing, mouth swelling, ear pain, eye pain, visual changes CARDIOVASCULAR: chest pain Absent: syncope, palpitations, irregular heart rate, lightheadedness, peripheral edema RESPIRATORY: dyspnea with exertion Absent: cough, shortness of breath, orthopnea, wheezing, stridor, hemoptysis GASTROINTESTINAL: Absent: abdominal pain, abdominal distension, nausea, vomiting, diarrhea, constipation, melena, hematochezia GENITOURINARY: Absent: dysuria, frequency, urgency, hesitancy, hematuria, flank pain, genital pain MUSCULOSKELETAL: Absent: myalgia, arthralgia, joint swelling, back pain, neck pain SKIN: Absent: rash, itching, pallor HEMATOLOGIC/IMMUNOLOGIC: Absent: easy bleeding, easy bruising, lymphadenopathy, frequent infections ENDOCRINE: Absent: unexplained weight gain, unexplained weight loss, heat intolerance, cold intolerance NEUROLOGIC: Absent: headache, focal weakness or paresthesias, dizziness, unsteady gait, seizure, mental status changes, bladder or bowel incontinence PSYCHIATRIC: Absent: anxiety, depression, suicidal or homicidal ideation, hallucinations. PHYSICAL EXAMINATION Vital Signs - 24 hr 09/06/18 09/06/18 09/06/18 14:15 14:49 17:58 Temperature 98.6 F 98.3 F Pulse Rate 74 Pulse Rate [ 79 78 Apical] Respiratory 18 18 18 Rate Blood Pressure 84/66 L Blood Pressure 127/73 126/79 [Right Arm] O2 Sat by Pulse 100 100 98 Oximetry (%) GENERAL: Awake, alert, and fully oriented, in no acute distress. HEAD: Normal with no signs of trauma. EYES:PERRLA, EOMI, sclera anicteric, conjunctiva clear. EARS, NOSE, THROAT: Moist mucous membranes. NECK: Normal range of motion, supple., no JVD LUNGS: Breath sounds equal, clear to auscultation bilaterally. HEART: Regular rate and rhythm, normal S1 and S2 without murmur, rub or gallop. ABDOMEN: Soft, nontender, not distended, normoactive bowel sounds, no guarding. MUSCULOSKELETAL: Normal range of motion at all joints. No bony deformities or tenderness. UPPER EXTREMITIES: 2+ pulses, warm, well-perfused. No peripheral edema. LOWER EXTREMITIES: 2+ pulses, warm, well-perfused. No peripheral edema. NEUROLOGICAL: Cranial nerves II-XII intact. Normal speech. Normal gait. PSYCHIATRIC: Cooperative. Good eye contact. Appropriate mood and affect. SKIN: Warm, dry, normal turgor, no rashes or lesions noted. Laboratory Results - last 24 hr 09/06/18 09/06/18 09/06/18 14:30 14:30 14:30 WBC 7.6 RBC 4.50 Hgb 9.7 L Hct 31.1 L MCV 69.1 L MCH 21.5 L MCHC 31.2 L RDW 18.9 H Plt Count 367 MPV 8.8 Absolute Neuts (auto) 4.5 Neutrophils % 59.1 Lymphocytes % 29.0 D Monocytes % 9.4 Eosinophils % 1.8 D Basophils % 0.7 Nucleated RBC % 0 Hypochromia 2+ Anisocytosis 1+ Microcytosis 1+ PT with INR 12.50 INR 1.06 Sodium 139 Potassium 3.9 Chloride 107 Carbon Dioxide 26 Anion Gap 6 L BUN 8.8 Creatinine 0.7 Est GFR (CKD-EPI)AfAm 117.09 Est GFR (CKD-EPI)NonAf 101.02 Random Glucose 80 Calcium 9.0 Magnesium 2.4 Total Bilirubin 0.4 AST 16 ALT 23 Alkaline Phosphatase 91 Creatine Kinase 92 Troponin I < 0.02 B-Natriuretic Peptide 43.5 Total Protein 7.5 Albumin 3.9 ASSESSMENT/PLAN: Patient is a 48 year old female with past medical history of HTN, HLD and hypothyroidism, presented to the ED due multiple intermittent episodes of left sided chest pain radiating down to the left arm and jaw that started this morning. #Unstable angina -EKG : NSR, no ST-T wave ischemic changes -Trop <0.02 x1 -will trend trop q4h -Heparin drip started -Lipitor 80mg HS -Continue ASA 81mg daily -Nitro SL as needed for pain -Echo -Lipid profile -NPO for now, patient planned for transfer for cath -Cardiology (Dr. Varma) consulted. Recommendations appreciated. #HTN -Will hold amlodipine for now -Will start Metoprolol 12.5mg bid #Hypothyroidism -Continue Synthroid 175mcg #FEN -Not on any standing fluids -Electrolytes wnl, routine bmp monitoring -NPO except meds #Prophylaxis -Heparin drip #Disposition -full code -admit to tele -for transfer to tertiary center for cath as per cardiology Visit type - Emergency Visit Emergency Visit: Yes ED Registration Date: 09/06/18 Care time: The patient presented to the Emergency Department on the above date and was hospitalized for further evaluation of their emergent condition. - New Patient This patient is new to me today: Yes Date on this admission: 09/06/18 - Critical Care Critical Care patient: No ATTENDING PHYSICIAN STATEMENT I saw and evaluated the patient. I reviewed the resident's note and discussed the case with the resident. I agree with the resident's findings and plan as documented. SUBJECTIVE: OBJECTIVE: ASSESSMENT AND PLAN:
[2018-09-06] MEDS ORDERED: HEPARIN NA (PORCINE) 5,000 UNITS/ML 1ML VIAL IVPUSH PRN ×2 (18:31)
[2018-09-06] MEDS ORDERED: NITROGLYCERIN SUBLINGUAL 1/150 0.4 MG TAB SL PRN (18:34)
[2018-09-06] MEDS ORDERED: HEPARIN INFUSION - 25,000 UNITS/500 ML INFUS.BAG IV SCH (18:45)
--- NOTE | 2018-09-06 18:47 | PN ---
Teaching Attending Note Name of Resident: Ca Burleson ATTENDING PHYSICIAN STATEMENT I saw and evaluated the patient. I reviewed the resident's note and discussed the case with the resident. I agree with the resident's findings and plan as documented. CC: Chest pain HPI: 48 y/o lady with h/o HTN, hypothyroidism, carotid stenosis, endometriosis , uterine fibroids, iron def anemia due to heavy menses s/p hysterectomy 06/15, who presented with CP. she woke up with L sided chest pressure, with radiation to mandible and with numbness of L arm. pain is intermittent, lasted for seconds, and recurred after 10 min. it happened all day long until she came to Er and was given aspirin. she is cp free now. she describes cp and SOB with exertion ( climbing 10 steps) , sx resolve with rest. 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 He brother of massive CO at age 49, and mom 6 months ago with CO at age 76. dad of [place] . Now denies SOB, CP , FRANZ , light headedness, or palpitations. she denies LE edema. In ER, she was given aspirin and one dose of lasix due to possible congestion on cxray. OBJECTIVE: NAD , AAOx3. pleasant and cooperative HEENT: MMM, no facial droop, EOMI, no JVD. Lungs: CTAB CV: RRR, HR in 70s. no MRG Abd: soft, NT, Nd , NL Bs EXt: no edema or erythema on LE. Neuro: EOMI, round equal pupils, reactive to light , no facial droop. tongue at mid line. strength 5/5 in upper and lower extremities proximally and distally. ASSESSMENT AND PLAN: 48 y/o lady with h/o HTN, hypothyroidism, carotid stenosis, endometriosis , uterine fibroids, iron def anemia due to heavy menses s/p hysterectomy 06/15, who presented with CP. 1- CP: Unstable angina. first trop neg. EKG with Sinus rhythm, Nl axis, RBBB, and subtle lateral ST depression. No signs of heart failure. - she received full dose aspirin in ER - start heparin gtt. No active bleeding after hysterectomy. no GI bleed. no blood disorder. - give lipitor - give 12.5 mg of po lopressor. if no drop in BP will continue in am . goal of HR in 60s. - tele monitoring. - case was d/w Dr. Varma who agreed with above. No need to give plavix yet. - keep NPO for cath/ timing per card. -repeat trop every 4 hours for now. if trop increases, will notify card - SL NG if CP recurs, but MD has to be notified . - echo - lipid panel 2- HTN: initial hypotension in ER resolved with no IVf. BP is stable now. - hold norvasc and give BB for now. 3- Hypothyroidism: cont synthroid 5- Iron def anemia: due to heavy menses. s/p hysterectomy, with resolution of vaginal bleed. - cont iron supplements. Dispo: admit to tele. will be transferred for cath when appropriate per card.
[2018-09-06] MEDS ORDERED: HEPARIN NA (PORCINE) 5,000 UNITS/ML 1ML VIAL ONE (18:57)
[2018-09-06] MEDS ORDERED: HEPARIN INFUSION - 25,000 UNITS/500 ML INFUS.BAG IVPB ONE (18:57)
[2018-09-06] MEDS ORDERED: METOPROLOL TARTRATE 25 MG TABLET (FP) PO ONE (18:58)
[2018-09-06] MEDS ORDERED: METOPROLOL TARTRATE 25 MG TABLET (FP) ONE (19:04)
[2018-09-06] MEDS ORDERED: ATORVASTATIN CA 80 MG TABLET (FP) PO SCH (22:00)
[2018-09-06] MEDS ORDERED: METOPROLOL TARTRATE 25 MG TABLET (FP) PO SCH (22:00)
[2018-09-06] MEDS ORDERED: ATORVASTATIN CA 80 MG TABLET (FP) ONE (22:07)
[2018-09-07] MEDS ORDERED: LEVOTHYROXINE 100 MCG, LEVOTHYROXINE 75 MCG PO SCH (07:00)
[2018-09-07 07:17] LABS: BASO % 0.7 % (0-2.0); EOS % 2.8 % (0-4.5); HEMATOCRIT 32.8 % (32.4-45.2); HEMOGLOBIN 10.2 GM/dL (10.7-15.3); LYMPH % 32.9 % (8-40); MCH 21.7 pg (25.7-33.7); MEAN CELL VOLUME 69.9 fl (80-96); MEAN PLT VOLUME 8.7 fl (7.5-11.1); NEUT % 53.6 % (42.8-82.8); PLATELET COUNT 340 K/MM3 (134-434); WHITE BLOOD COUNT 6.9 K/mm3 (4.0-10.0)
--- NOTE | 2018-09-07 08:05 | CON.CARD ---
Consult Consult Specialty:: Cardiology Referred by:: Dr. Darling Reason for Consultation:: Unstable Angina - History of Present Illness Chief Complaint: GARY and intermittent chest pressure History of Present Illness: 48F w/ HLD and strong fam hx CAD (brother AR 40s, Mother 60s, father AR) presents to ER w/ several weeks GARY and then yesterday chest pressure with GARY at rest with radiation to left arm. Cardiac enzymes negative. ECG was reviewed and showed subtle ST depressions laterally. No cough, fever chills. No tachycardia or pleuritic cp. No recent travel. - History Source History Provided By: Patient Limitations to Obtaining History: No Limitations - Past Medical History Cardio/Vascular: Yes: Hyperlipdemia Pulmonary: No: Asthma, Bronchitis, Cancer, COPD, O2 Dependent, Pneumonia, Previously Intubated, Pulmonary Embolus, Pulmonary Fibrosis, Sleep Apnea, Other Gastrointestinal: No: Ascites, Cancer, Constipation, Crohn's Disease, Diverticulitis, Diverticulosis, Esophageal Varices, Gastritis, GERD, GI Bleed, Hemorrhoids, Hiatal Hernia, Inflamatory Bowel Disease, Irritable Bowel Disease, Pancreatitis, Peptic Ulcer Disease, Ulcerative Colitis, Other Hepatobiliary: No: Cirrhosis, Cholelithiasis, Cholecystitis, Choledocholithiasis , Hepatitis A, Hepatitis B, Hepatitis C, Other Renal/: No: Renal Failure, Renal Inusuff, BPH, Cancer, Hematuria, Hemodialysis , Neurogenic Bladder, Renal Calculi, UTI, Other Reproductive: No: Ectopic , Endometriosis, Fibroids, PID, Polycystic Ovary Syndrome, Postmenopausal, Other ...LMP: 04/11/14 Heme/Onc: No: Anemia, B12 Deficiency, Bleeding Disorder, Cancer, Current Chemotherapy, Current Radiation Therapy, Hemochromatosis, Hypercoaguable State, Myeloproliferative Synd, Sickle Cell Disease, Sickle Cell Trait, Thrombocytopenia, Other Infectious Disease: No: AIDS, C-Diff, Herpes Zoster, HIV, MRSA, STD's, Tuberculosis, VREF, Other Psych: No: Addictions, Anxiety, Bipolar, Depression, Panic, Psychosis, Schizophrenia, Other Musculoskeletal: No: Bursitis, Chronic low back pain, Hemiparesis, Hemiplegia, Osteoarthritis, Paraplegia, Other Rheumatology: No: Fibromyalgia, Gout, Lupus, Rheumatoid Arthritis, Sarcoidosis, Vasculitis, Other ENT: No: Allergic Rhinitis, Sinusitis, Other Endocrine: No: [place]'s Disease, Tarkio's Disease, Diabetes Insipidus, Diabetes Mellitus, Hyperparathyroidism, Hyperthyroidism, Hypothyroidism, Osteopenia, SIADH, Other Dermatology: No: Basal Cell, Cellulitis, Eczema, Melanoma, Psoriasis, Squamous Cell, Other - Past Surgical History Past Surgical History: No: None, AAA Repair, AICD, Amputation, Appendectomy, Arthrosocopy, AV Fistula/Graft, Bariatric Surgery, Breast Biopsy, Bypass, CABG, Carotid Endarterectomy, Cataract Removal, Cholecystectomy, Colectomy, Colonoscopy, Colostomy, Craniotomy, , Cystectomy, Hernia Repair, Hysterectomy, Ileal Conduit, Ileosotomy, Joint Replacement, Kidney Transplant, Laminectomy, Liver Transplant, Mastectomy, Nephrectomy, Oopherectomy, Orchiectomy, Permanent Pacemaker, Prostatectomy, Splenectomy, Stent, Thoracotomy , TURP, Tonsillectomy, Tubal Ligation, Upper Endoscopy, Valve Replacement, Vasectomy, Vein Stripping/Ligation Additional Surgical History: Recent hysterectomy for Fibroids and heavy menses resulting in chronic anemia - Alcohol/Substance Use Hx Alcohol Use: No - Smoking History Smoking history: Never smoked Have you smoked in the past 12 months: No - Social History History of Recent Travel: No Home Medications - Allergies Allergies/Adverse Reactions: Allergies Allergy/AdvReac Type Severity Reaction Status Date / Time No Known Allergies Allergy Verified 09/06/18 14:18 - Home Medications Home Medications: Ambulatory Orders Amlodipine Besylate 10 mg PO DAILY 05/25/16 Simvastatin 40 mg PO DAILY 05/25/16 Levothyroxine [Synthroid -] 175 mcg PO DAILY 05/31/18 Aspirin [ASA -] 81 mg PO DAILY 09/06/18 Family Disease History - Family Disease History Family History: Unremarkable Family Disease History: Heart Disease: Father (AR), Mother (AR), Brother (AR) Review of Systems - Review of Systems Constitutional: reports: No Symptoms Eyes: reports: No Symptoms HENT: reports: No Symptoms Neck: reports: No Symptoms Cardiovascular: reports: Chest Pain, Shortness of Breath Respiratory: reports: SOB on Exertion Gastrointestinal: denies: No Symptoms, Abdominal Pain, Bloating, Constipation, Diarrhea, Dysphagia, Indigestion, Melena, Nausea, Rectal Bleeding, Vomiting, Vomiting Blood, Other Genitourinary: denies: No Symptoms, Burning, Discharge, Dysuria, Flank Pain, Frequency, Hematuria, Incontinence, Lesions, Menses, Pain, Testicular Mass, Testicular Pain, Testicular Swelling, Urgency, Vaginal Bleeding, Other Breasts: denies: No Symptoms Reported, See HPI, Breast Implants, Discharge from Nipple, Lumps, Pain, Skin Changes, Other Musculoskeletal: denies: No Symptoms, Back Pain, Crepitus, Decreased ROM, Extremity Pain, Joint Pain, Joint Swelling, Muscle Pain, Muscle Cramps, Muscle Weakness, Other Integumentary: denies: No Symptoms, Blister, Bruising, Change in Color, Eczema, Erythema, Incision, Lesions, Lump, Pallor, Pruritis, Rash, Wound, Other Neurological: denies: No Symptoms, Change in LOC, Change in Speech, Confusion, Dizziness, Headache, Incoordination, Numbness, Parasthesia, Pre-Existing Deficit , Seizure, Syncope, Tremors, Unsteady Gait, Weakness, Other Endocrine: denies: No Symptoms, Excessive Sweating, Flushing, Increased Hunger, Increased Thirst, Intolerance to Cold, Intolerance to Heat, Unexplained Weight Gain, Unexplained Weight Loss, Other Hematology/Lymphatic: denies: No Symptoms, Easily Bruised, Excessive Bleeding, Swollen Glands, Other Vital Signs: Vital Signs Temperature 98.3 F 09/06/18 18:00 Pulse Rate 63 09/07/18 04:14 Respiratory Rate 20 09/07/18 04:14 Blood Pressure 118/64 09/07/18 04:14 O2 Sat by Pulse Oximetry (%) 99 09/07/18 04:14 Constitutional: Yes: Well Nourished, No Distress Eyes: Yes: Conjunctiva Clear Neck: Yes: Trachea Midline Respiratory: Yes: CTA Bilaterally Gastrointestinal: Yes: Soft Cardiovascular: Yes: Regular Rate and Rhythm JVD: No Carotid Bruit: No Heart Sounds: Yes: S1, S2 (RRR, no m/r/g) Edema: No Peripheral Pulses WNL: Yes Neurological: Yes: Alert, Oriented - Other Data Labs, Other Data: CBC, BMP 09/07/18 06:20 INR, PTT INR 1.06 (0.83-1.09) 09/06/18 14:30 Troponin, BNP 09/06/18 09/06/18 09/06/18 14:30 20:38 21:45 Troponin I < 0.02 < 0.02 < 0.02 B-Natriuretic Peptide 43.5 09/07/18 01:15 Troponin I < 0.02 B-Natriuretic Peptide Troponin, BNP 09/06/18 09/06/18 09/06/18 14:30 20:38 21:45 Troponin I < 0.02 < 0.02 < 0.02 B-Natriuretic Peptide 43.5 09/07/18 01:15 Troponin I < 0.02 B-Natriuretic Peptide Echo: Pending Imaging - Results X-ray: Report Reviewed EKG: Image Reviewed Assessment/Plan IMP: 1. Symptoms c/w unstable angina 2. Abnl ECG 3. Strong family history of CAD REC: 1. Probability of CAD high based on risk factors and especially family history. -Cont ASA, heparin gtts. -Echo for EF assessment 2. Plan for tx to [facility] for cath today. 3. Anemia likely due to previous heavy menses from uterine fibroids, s/p hysterectomy 05/2018. No active bleeding. Iron suppl, f/u PMD.
[2018-09-07 09:36] LABS: ALBUMIN 3.8 g/dl (3.4-5.0); BLOOD UREA NITROGEN 9.2 mg/dL (7-18); CALCIUM 9.1 mg/dL (8.5-10.1); CREATININE 0.7 mg/dL (0.55-1.3); MAGNESIUM 2.5 mg/dL (1.8-2.4); PHOSPHOROUS 4.5 mg/dL (2.5-4.9); POTASSIUM 3.4 mmol/L (3.5-5.1); TOT PROT 7.5 g/dl (6.4-8.2)
[2018-09-07 09:39] LABS: BILIRUBIN,TOTAL 0.7 mg/dL (0.2-1)
--- NOTE | 2018-09-07 09:58 | ECHO ---
Name: LASHON GOMEZ Exam:Adult Echocardiogram Study Date: 09/07/2018 08:44 AM Age: 48 yrs Reason For Study: unstable angina Height: 64 in Weight: 160 lb BSA: 1.8 m2 MMode/2D Measurements & Calculations IVSd: 0.84 cm Ao root diam: 2.2 cm LVIDd: 4.7 cm LA dimension: 3.4 cm LVIDs: 2.9 cm LVPWd: 0.74 cm LVPWs: 1.4 cm EDV(Teich): 102.4 ml ESV(Teich): 32.0 ml LVOT diam: 1.8 cm Doppler Measurements & Calculations MV E max jonathan: 67.1 cm/sec Ao V2 max: 123.5 cm/sec MV A max jonathan: 59.2 cm/sec Ao max P.2 mmHg MV E/A: 1.1 Ao V2 mean: 83.4 cm/sec MV dec time: 0.25 sec Ao mean P.3 mmHg Ao V2 VTI: 26.1 cm SALO(I,D): 1.9 cm2 SALO(V,D): 1.9 cm2 LV V1 max P.4 mmHg SV(LVOT): 48.8 ml LV V1 mean P.7 mmHg LV V1 max: 92.8 cm/sec LV V1 mean: 59.5 cm/sec LV V1 VTI: 19.5 cm PA V2 max: 99.8 cm/sec Med Peak E' Jonathan: 6.8 cm/sec PA max P.0 mmHg Med E/e': 9.9 Lat Peak E' Jonathan: 11.2 cm/sec Lat E/e': 6.0 Left Ventricle Ejection Fraction = 50-55%. The transmitral spectral Doppler flow pattern is normal for age. There is mild lateral wall hypokinesis. Right Ventricle The right ventricle is normal in size and function. Atria Normal left and right atrial size and function. Mitral Valve The mitral valve is normal in structure and function. There is trace mitral regurgitation. Tricuspid Valve The tricuspid valve is normal in structure and function. There is Trace to mild tricuspid regurgitati on. Aortic Valve The aortic valve opens well. No hemodynamically significant valvular aortic stenosis. No aortic regur gitation is present. Pulmonic Valve The pulmonic valve is not well seen, but is grossly normal. There is no pulmonic valvular stenosis. T here is no pulmonic valvular regurgitation. Great Vessels The aortic root is normal size. Pericardium/Pleura There is no pericardial effusion. Interpretation Summary There is mild lateral wall hypokinesis. Ejection Fraction = 50-55%. The right ventricle is normal in size and function. There is trace mitral regurgitation. There is Trace to mild tricuspid regurgitation. The aortic root is normal size. There is no pericardial effusion. MD Alvarado *Kojo 09/07/2018 09:57 AM
[2018-09-07] MEDS ORDERED: ASPIRIN 81 MG CHEWABLE TABLETS PO SCH (10:00)
[2018-09-07] MEDS ORDERED: LEVOTHYROXINE NA 125 MCG TABLET (FP) PO SCH (10:00)
[2018-09-07] MEDS ORDERED: METOPROLOL TARTRATE 25 MG TABLET (FP) PO SCH ×3 (10:00)
[2018-09-07] MEDS ORDERED: POTASSIUM CHLORIDE TABS 20 MEQ TABLET.ER (FP) PO ONE ×2 (10:30→10:34)
[2018-09-07] MEDS ORDERED: ASPIRIN 81 MG CHEWABLE TABLETS ONE (10:34)
--- NOTE | 2018-09-07 14:15 | PN ---
Teaching Attending Note Name of Resident: Candelaria Silverman ATTENDING PHYSICIAN STATEMENT I saw and evaluated the patient. I reviewed the resident's note and discussed the case with the resident. I agree with the resident's findings and plan as documented. SUBJECTIVE: No fever or chills. no CP last night but had one episode of cp early this am. OBJECTIVE: NAD Lungs: CTAB CV: RRR, No JVD EXt: no edema or erythema on LE. ASSESSMENT AND PLAN: 48 y/o lady with h/o HTN, hypothyroidism, carotid stenosis, endometriosis , uterine fibroids, iron def anemia due to heavy menses s/p hysterectomy 06/15, who presented with CP. 1- Unstable angina. neg trop. stable Vs. Cp free now - cont heaprin gtt, BB, statin, and ASA. - echo reviewed. - needs cardiac cath - declined by [facility] for transfer due to lack of insurance. 2- HTN: cont BB . cont to hold home [facility] 3- Hypothyroidism: cont synthroid 5- Iron def anemia: due to heavy menses. s/p hysterectomy, with resolution of vaginal bleed. - cont iron supplements. Dispo: started transfer process to [facility]. Awaiting decision.
[2018-09-07 16:17] VITALS: BP 118/71; PULSE 74
[2018-09-07 16:19] VITALS: TEMP 98.2
--- NOTE | 2018-09-07 17:35 | DS ---
Physical Exam: SUBJECTIVE: Patient seen and examined at bedside and I informed her of why she was to be transferred and she agreed. She was in no acute distress overnight. OBJECTIVE: Vital Signs Period Temp Pulse Resp BP Sys/M[place]ragon Pulse Ox Last 24 Hr 97.9 F-98.3 F 63-78 18-20 107-141/64-79 98-100 PHYSICAL EXAM GENERAL: The patient is awake, alert, and fully oriented, in no acute distress. HEAD: Normal with no signs of trauma. EYES: sclera anicteric, conjunctiva clear. NECK: grossly Trachea midline, gross full range of motion, supple. LUNGS: Breath sounds equal, clear to auscultation bilaterally, no wheezes, no crackles, no accessory muscle use. HEART: Regular rate and rhythm, S1, S2 without murmur, rub or gallop. ABDOMEN: Soft, nontender, nondistended, normoactive bowel sounds, no guarding, no rebound, no masses. EXTREMITIES: 2+ pulses, warm, well-perfused, no edema. NEUROLOGICAL: Cranial nerves II through XII grossly intact. Normal speech, gait not observed. PSYCH: Normal mood, normal affect. SKIN: Warm, dry, no rashes or lesions noted. LABS Laboratory Results - last 24 hr 09/06/18 09/06/18 09/06/18 14:30 14:30 20:38 WBC RBC Hgb Hct MCV MCH MCHC RDW Plt Count MPV Absolute Neuts (auto) Neutrophils % Lymphocytes % Monocytes % Eosinophils % Basophils % Nucleated RBC % Hypochromia 2+ Anisocytosis 1+ Microcytosis 1+ PTT (Actin FS) Sodium 139 Potassium 3.9 Chloride 107 Carbon Dioxide 26 Anion Gap 6 L BUN 8.8 Creatinine 0.7 Est GFR (CKD-EPI)AfAm 117.09 Est GFR (CKD-EPI)NonAf 101.02 Random Glucose 80 Calcium 9.0 Phosphorus Magnesium 2.4 Total Bilirubin 0.4 AST 16 ALT 23 Alkaline Phosphatase 91 Creatine Kinase 92 Troponin I < 0.02 < 0.02 B-Natriuretic Peptide 43.5 Total Protein 7.5 Albumin 3.9 Triglycerides Cholesterol Total LDL Cholesterol HDL Cholesterol 09/06/18 09/07/18 09/07/18 21:45 01:15 01:15 WBC RBC Hgb Hct MCV MCH MCHC RDW Plt Count MPV Absolute Neuts (auto) Neutrophils % Lymphocytes % Monocytes % Eosinophils % Basophils % Nucleated RBC % Hypochromia Anisocytosis Microcytosis PTT (Actin FS) 49.0 H Sodium Potassium Chloride Carbon Dioxide Anion Gap BUN Creatinine Est GFR (CKD-EPI)AfAm Est GFR (CKD-EPI)NonAf Random Glucose Calcium Phosphorus Magnesium Total Bilirubin AST ALT Alkaline Phosphatase Creatine Kinase 93 Troponin I < 0.02 < 0.02 B-Natriuretic Peptide Total Protein Albumin Triglycerides Cholesterol Total LDL Cholesterol HDL Cholesterol 09/07/18 09/07/18 09/07/18 06:20 06:20 06:20 WBC 6.9 RBC 4.70 Hgb 10.2 L Hct 32.8 MCV 69.9 L MCH 21.7 L MCHC 31.0 L RDW 19.0 H Plt Count 340 MPV 8.7 Absolute Neuts (auto) 3.7 Neutrophils % 53.6 Lymphocytes % 32.9 Monocytes % 10.0 Eosinophils % 2.8 Basophils % 0.7 Nucleated RBC % 0 Hypochromia Anisocytosis Microcytosis PTT (Actin FS) 82.8 H Sodium 140 Potassium 3.4 L Chloride 107 Carbon Dioxide 24 Anion Gap 9 BUN 9.2 Creatinine 0.7 Est GFR (CKD-EPI)AfAm 117.09 Est GFR (CKD-EPI)NonAf 101.02 Random Glucose 87 Calcium 9.1 Phosphorus 4.5 Magnesium 2.5 H Total Bilirubin 0.7 AST 19 ALT 23 Alkaline Phosphatase 89 Creatine Kinase Troponin I B-Natriuretic Peptide Total Protein 7.5 Albumin 3.8 Triglycerides 102 Cholesterol 156 Total LDL Cholesterol 86 HDL Cholesterol 61 H 09/07/18 09/07/18 06:20 11:00 WBC RBC Hgb Hct MCV MCH MCHC RDW Plt Count MPV Absolute Neuts (auto) Neutrophils % Lymphocytes % Monocytes % Eosinophils % Basophils % Nucleated RBC % Hypochromia Anisocytosis Microcytosis PTT (Actin FS) Sodium Potassium Chloride Carbon Dioxide Anion Gap BUN Creatinine Est GFR (CKD-EPI)AfAm Est GFR (CKD-EPI)NonAf Random Glucose Calcium Phosphorus Magnesium Total Bilirubin AST ALT Alkaline Phosphatase Creatine Kinase Troponin I < 0.02 < 0.02 B-Natriuretic Peptide Total Protein Albumin Triglycerides Cholesterol Total LDL Cholesterol HDL Cholesterol HOSPITAL COURSE: Date of Admission:09/06/18 This is a 48y/o F with HLD and strong fam hx of CAD (brother [place] 40s, Mother 60s , father AL) who was admitted for unstable angina to ER w/ several weeks GARY. - While she was here she was started on heparin drip. Her cardiac troponins were negative. We had Cardiology (Dr. Webster) evaluate her and he determined she would need a cardiac cath. -Pt has been transferred to [facility] for cardiac catheterization. Imaging: -ECG was reviewed and showed subtle ST depressions laterally. - echo showed an EF of 50-55% EF, trace TR, RV size was normal, lateral wall hypokinesis Date of Discharge: 09/07/18 Minutes to complete discharge: 35 Discharge Summary Reason For Visit: CHEST PAIN Current Active Problems Chest pain (Acute) Condition: Stable - Instructions Disposition: TRANSFER ACUTE CARE/OTHER HOSP - Home Medications Comprehensive Discharge Medication List: Ambulatory Orders Amlodipine Besylate 10 mg PO DAILY 05/25/16 Simvastatin 40 mg PO DAILY 05/25/16 Levothyroxine [Synthroid -] 175 mcg PO DAILY 05/31/18 Aspirin [ASA -] 81 mg PO DAILY 09/06/18 Atorvastatin Ca [Lipitor] 20 mg PO HS 09/07/18 Cholecalciferol (Vitamin D3) [D3-50] 50,000 unit PO WEEKLY 09/07/18 This patient is new to me today: Yes Date on this admission: 09/07/18 Emergency Visit: Yes ED Registration Date: 09/06/18 Care time: The patient presented to the Emergency Department on the above date and was hospitalized for further evaluation of their emergent condition. Critical Care patient: No - Discharge Referral Referred to [facility] Med P.C.: No ATTENDING PHYSICIAN STATEMENT I saw and evaluated the patient. I reviewed the resident's note and discussed the case with the resident. I agree with the resident's findings and plan as documented. SUBJECTIVE: OBJECTIVE: ASSESSMENT AND PLAN:
== END 2018-09-07 16:45 | disposition short-term general hospital (02) | DRG 198 ==
LOC: JER 14:11 → OBSVTOIN 17:05 → JERBED 17:05
PROVIDERS: ADMIT Internal Medicine; ATTEND Internal Medicine
DX: I20.0 Unstable angina (principal); I77.1 Stricture of artery; E03.9 Hypothyroidism, unspecified; E78.5 Hyperlipidemia, unspecified; I10 Essential (primary) hypertension; R07.9 Chest pain, unspecified; D50.9 Iron deficiency anemia, unspecified
CPT/HCPCS: 36415; 71046-TC-FY; 80053; 80061; 82550; 83721; 83735; 83880; 84100; 84484; 85025; 85610; 85730; 93005; 93010; 93306-TC; 99285-25; J1644

== ENCOUNTER 2021-04-14 15:25 | Emergency (ER) | payer OTHER ==
[2021-04-14 15:30] VITALS: BP 119/67; PULSE 70; TEMP 97.9; BMI 28.6
== END 2021-04-14 16:03 | disposition home or self-care (01) ==
LOC: JERFT 15:25
DX: M54.2 Cervicalgia (principal); M54.9 Dorsalgia, unspecified
CPT/HCPCS: 99281-25

== ENCOUNTER 2021-06-20 21:50 | Emergency (ER) | payer OTHER ==
[2021-06-20 21:58] VITALS: BMI 31.7
[2021-06-21 01:03] LABS: BASO % 0.7 % (0-2.0); EOS % 4.2 % (0-4.5); HEMATOCRIT 39.1 % (32.4-45.2); HEMOGLOBIN 13.3 GM/dL (10.7-15.3); LYMPH % 27.7 % (8-40); MCH 29.6 pg (25.7-33.7); MCHC 33.9 g/dl (32.0-36.0); MEAN CELL VOLUME 87.2 fl (80-96); MEAN PLT VOLUME 9.8 fl (7.5-11.1); MONO % 8.2 % (3.8-10.2); NEUT % 59.2 % (42.8-82.8); PLATELET COUNT 242 10^3/uL (134-434); RBC 4.48 M/mm3 (3.60-5.2); RDW 13.4 % (11.6-15.6); WHITE BLOOD COUNT 6.3 K/mm3 (4.0-10.0)
[2021-06-21 01:09] VITALS: BP 113/57; PULSE 72; TEMP 98.1
[2021-06-21 01:23] LABS: CALCIUM 8.6 mg/dL (8.5-10.1)
[2021-06-21 01:24] LABS: ALBUMIN 3.8 g/dl (3.4-5.0); BLOOD UREA NITROGEN 16.9 mg/dL (7-18); MAGNESIUM 2.1 mg/dL (1.8-2.4)
[2021-06-21 01:28] LABS: BILIRUBIN,TOTAL 0.3 mg/dL (0.2-1)
[2021-06-21 01:29] LABS: TOT PROT 7.6 g/dl (6.4-8.2)
[2021-06-21] MEDS ORDERED: FUROSEMIDE 40 MG/4 ML INJECTABLE VIAL IVPUSH SCH (10:00)
== END 2021-06-21 03:02 | disposition home or self-care (01) ==
LOC: JER 21:50
PROC: 3E033GC Introduction of Other Therapeutic Substance into Peripheral Vein, Percutaneous Approach (ICD-10-PCS; principal; 2021-06-20)
DX: R60.0 Localized edema (principal)
CPT/HCPCS: 36415; 71045-TC-FY; 80053; 83735; 83880; 84100; 84436; 84443; 84479; 84484; 85025; 93005; 93010; 93970-TC; 96374; 99285-25; C9803-CS; U0003; U0005

== ENCOUNTER 2022-05-10 14:55 | Emergency (ER) | payer OTHER ==
[2022-05-10 15:10] VITALS: BP 113/79; PULSE 98; RESP 16; TEMP 98.2; BMI 31.8
[2022-05-10] MEDS ORDERED: DIPHTH,PERTUSS(ACELL),TET 0.5 ML DISP.SYRIN IM ONE ×2 (16:09→16:12)
== END 2022-05-10 16:57 | disposition home or self-care (01) ==
LOC: JERFT 14:55
PROC: 0HQ1XZZ Repair Face Skin, External Approach (ICD-10-PCS; principal; 2022-05-10)
PROC: 3E0337Z Introduction of Electrolytic and Water Balance Substance into Peripheral Vein, Percutaneous Approach (ICD-10-PCS; 2022-05-10)
DX: S01.112A Laceration without foreign body of left eyelid and periocular area, initial encounter (principal); W22.8XXA Striking against or struck by other objects, initial encounter
CPT/HCPCS: 90471; 90715; 96361; 96374; 99282-25

== ENCOUNTER 2022-05-18 16:28 | Emergency (ER) | payer OTHER ==
[2022-05-18 16:52] VITALS: BP 114/70; PULSE 74; RESP 18; TEMP 98.1; BMI 31.8
== END 2022-05-18 18:24 | disposition home or self-care (01) ==
LOC: JERFT 16:28 → JER 16:28 → JERFT 18:24
DX: S01.112D Laceration without foreign body of left eyelid and periocular area, subsequent encounter (principal); X58.XXXD Exposure to other specified factors, subsequent encounter
CPT/HCPCS: 99282-25

== ENCOUNTER 2022-08-09 05:06 | Day surgery (SDC) | payer OTHER ==
[2022-08-05 09:19] VITALS: BMI 31.3
[2022-08-09 12:15] VITALS: TEMP 98
[2022-08-09 12:54] VITALS: BP 107/58; PULSE 68; RESP 16
== END 2022-08-09 13:19 | disposition home or self-care (01) ==
LOC: JASU-ENDO 05:06
PROVIDERS: ATTEND Student in an Organized Health Care Education/Training Program
PROC: 0DBP8ZX Excision of Rectum, Via Natural or Artificial Opening Endoscopic, Diagnostic (ICD-10-PCS; 2022-08-09)
PROC: 0DBH8ZX Excision of Cecum, Via Natural or Artificial Opening Endoscopic, Diagnostic (ICD-10-PCS; principal; 2022-08-09 10:30)
DX: D12.0 Benign neoplasm of cecum (principal); D12.8 Benign neoplasm of rectum; K59.89 Other specified functional intestinal disorders
CPT/HCPCS: 88305-TC

== ENCOUNTER 2023-10-08 02:06 | Emergency (ER) | payer OTHER ==
[2023-10-08 02:13] VITALS: BMI 30.5
[2023-10-08] MEDS ORDERED: ACETAMINOPHEN INJECTION 100 ML IVPB ONE (02:41)
[2023-10-08 02:47] LABS: BASO % 0.5 % (0-2.0); EOS % 2.4 % (0-4.5); HEMATOCRIT 37.7 % (32.4-45.2); LYMPH % 24.9 % (8-40); MCH 29.5 pg (25.7-33.7); MCHC 34.6 g/dl (32.0-36.0); MEAN CELL VOLUME 85.4 fl (80-96); MEAN PLT VOLUME 8.9 fl (7.5-11.1); NEUT % 64.2 % (42.8-82.8); PLATELET COUNT 289 10^3/uL (134-434); RBC 4.41 M/mm3 (3.60-5.2); RDW 12.9 % (11.6-15.6); WHITE BLOOD COUNT 7.6 K/mm3 (4.0-10.0)
[2023-10-08] MEDS: ACETAMINOPHEN 1000 MG/100 ML BAG IVPB ONE (02:49)
[2023-10-08] MEDS: SODIUM CHLORIDE 0.9% 500 ML INFUS.BAG IV ONE (02:49)
[2023-10-08 03:07] LABS: POTASSIUM 3.7 mmol/L (3.5-5.1)
[2023-10-08 03:10] LABS: BLOOD UREA NITROGEN 15.6 mg/dL (7-18); CALCIUM 9.5 mg/dL (8.5-10.1)
[2023-10-08 03:15] LABS: BILIRUBIN,TOTAL 0.3 mg/dL (0.2-1); TOT PROT 7.5 g/dl (6.4-8.2)
[2023-10-08 06:54] VITALS: BP 115/70; PULSE 58; RESP 12; TEMP 97.6
== END 2023-10-08 06:55 | disposition home or self-care (01) ==
LOC: JER 02:06
PROC: 3E033NZ Introduction of Analgesics, Hypnotics, Sedatives into Peripheral Vein, Percutaneous Approach (ICD-10-PCS; principal; 2023-10-08)
DX: F41.9 Anxiety disorder, unspecified (principal); R51.9 Headache, unspecified; R07.89 Other chest pain; M79.602 Pain in left arm; Z20.822 Contact with and (suspected) exposure to COVID-19
CPT/HCPCS: 0241U-QW; 36415; 71046-TC-FY; 80053; 84484; 85025; 93005; 93010; 99285-25; J0131

== ENCOUNTER 2023-11-06 19:59 | Emergency (ER) | payer OTHER ==
[2023-11-06 20:02] VITALS: BP 124/65; PULSE 77; RESP 18; TEMP 98.6; BMI 30.4
[2023-11-06] MEDS ORDERED: IBUPROFEN 600 MG TABLET (FP) PO ONE (21:05)
[2023-11-06] MEDS ORDERED: ACETAMINOPHEN 500 MG TABLET (FP) ONE (21:05)
[2023-11-06] MEDS: IBUPROFEN 600 MG TABLET (FP) PO ONE (21:21)
[2023-11-06] MEDS: ACETAMINOPHEN 500 MG TABLET (FP) PO ONE (21:22)
== END 2023-11-06 22:05 | disposition home or self-care (01) ==
LOC: JERFT 19:59 → JER 19:59 → JERFT 22:05
DX: U07.1 COVID-19 (principal); R51.9 Headache, unspecified; J02.9 Acute pharyngitis, unspecified; R05.9 Cough, unspecified; M79.10 Myalgia, unspecified site
CPT/HCPCS: 0241U-QW; 99283-25

== ENCOUNTER 2023-11-27 15:10 | Emergency (ER) | payer OTHER ==
[2023-11-27 15:29] VITALS: BP 114/68; PULSE 67; RESP 18; TEMP 98.3; BMI 30.8
== END 2023-11-27 16:45 | disposition home or self-care (01) ==
LOC: JERFT 15:10
DX: M75.52 Bursitis of left shoulder (principal); M77.8 Other enthesopathies, not elsewhere classified
CPT/HCPCS: 99283-25